=== PATIENT | female | born 2000 | race Caucasian/White ===

== ENCOUNTER 2020-07-28 13:17 | Outpatient (REF) | payer OTHER, SELFPAY | END 2020-07-28 13:18 | disposition home or self-care (01) | LOC: HO.LAB 13:17 | PROVIDERS: Visit Provider Internal Medicine | DX: Z20.822 Contact with and (suspected) exposure to COVID-19 (principal) | CPT/HCPCS: 36415; C9803; U0003; U0005 ==

== ENCOUNTER 2020-10-12 12:32 | Outpatient (REF) | payer OTHER, SELFPAY ==
[2020-10-12 13:56] LABS: COVID-19 Test Negative (Negative)
== END 2020-10-12 12:33 | disposition home or self-care (01) ==
LOC: HO.LAB 12:32
PROVIDERS: Visit Provider Internal Medicine
DX: Z20.822 Contact with and (suspected) exposure to COVID-19 (principal)
CPT/HCPCS: 36415; 87635; C9803

== ENCOUNTER 2023-10-01 10:50 | Outpatient (AMB) | payer OTHER, SELFPAY ==
--- NOTE | 2023-10-01 11:21 | AM.OFFWIN_ITS ---
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 She does not have any back pain, there is suprapubic pressure when she has to go urinate. There is no fever chills there is no vomiting, no headache UA shows positive leuk esterase 1+ I am treating her with Macrobid 100 mg b.i.d. for 3 days Patient is to push fluids If symptoms persist patient may return here for recheck. [facility] Social History Patient Tobacco Use Status: Never used Tobacco Review of Systems Const All systems reviewed & are unremarkable except as noted in HPI and below Physical Exam Vital Signs: Last Vital Signs Temp 97.9 F 10/01/23 11:27 Pulse 82 10/01/23 11:27 BP 122/78 10/01/23 11:27 Pulse Ox 98 10/01/23 11:27 Oxygen Delivery Method Room Air 10/01/23 11:27 Const General: no acute distress Orientation/consciousness: patient oriented x3 Eyes General: appearance normal, both eyes and all related structures Resp Effort & Inspection: normal respiratory effort and able to speak in complete sentences Auscultation: clear to auscultation bilaterally GI Other: Mild suprapubic pressure with palpation General: Yes no CVA tenderness Back/Spine/Pelvis Back: no CVA tenderness Neuro General: patient oriented x3 Psych Mental Status: mental status grossly normal Results AMB Urinalysis, Automated UA Leukoctes 15 O[place]da/uL Last Edit by Tunde Gibson MA on 10/01/23 11:39 UA Nitrite Positive Last Edit by Tunde Gibson MA on 10/01/23 11:39 UA Urobilinogen 0.2 mg/dL Last Edit by Tunde Gibson MA on 10/01/23 11:39 UA Protein 6.0 mg/dL Last Edit by Tunde Gibson MA on 10/01/23 11:39 UA pH Last Edit by Tunde Gibson MA on 10/01/23 11:39 UA Blood Kody/uL Last Edit by Tunde Gibson MA on 10/01/23 11:39 UA Specific [place] 1.010 Last Edit by Tunde Gibson MA on 10/01/23 11:3 9 UA Ketone Last Edit by Tunde Gibson MA on 10/01/23 11:39 UA Bilirubin mg/dL Last Edit by Tunde Gibson MA on 10/01/23 11:39 UA Glucose mg/dL Last Edit by Tunde Gibson MA on 10/01/23 11:39 Assessment & Plan Assessment & Plan (1) Urinary urgency: Code(s): R39.15 - Urgency of urination Plan Patient is 22-year-old female came in today to be evaluated for possible bladder infection Her symptom has been happening off and on for the past 6 week Patient says that sometimes she is feeling better sometimes she has a substance Her symptom present with urgency of urination. She does not have any back pain, there is suprapubic pressure when she has to go urinate. There is no fever chills there is no vomiting, no headache UA shows positive leuk esterase 1+ I am treating her with Macrobid 100 mg b.i.d. for 3 days Patient is to push fluids If symptoms persist patient may return here for recheck. Medications: New nitrofurantoin monohyd/m-cryst 100 mg (Macrobid) must administer with a meal/food 100 mg PO Q12H 3 days 6 caps 0RF Coding Level of Care Code New Pt Level 3 (40565) Diagnoses Urinary urgency R39.15
[2023-10-01 11:27] VITALS: BP 122/78; PULSE 82; TEMP 36.6; O2SAT 98; BMI 35.6
== END 2023-10-01 12:19 | disposition home or self-care (01) ==
PROVIDERS: Visit Provider Internal Medicine
DX: R39.15 Urgency of urination (principal)
CPT/HCPCS: 99203

== ENCOUNTER 2023-10-14 15:58 | Emergency (ER) | payer OTHER, SELFPAY ==
--- NOTE | ~2023-10-14 | XR_ITS ---
EXAMINATION: XR ANKLE, RIGHT CLINICAL INFORMATION: Ankle pain COMPARISON: None available. TECHNIQUE: AP, lateral, and mortise views of the right ankle. FINDINGS: Some minimal lateral soft tissue swelling is present. No fracture. Alignment is anatomic. No erosions. Joint spaces are maintained. XR/XR ankle RT 2V IMPRESSION: Minimal lateral soft tissue swelling. No fracture.
[2023-10-14 16:04] VITALS: BP 127/56; PULSE 101; RESP 16; TEMP 36.6; O2SAT 98; BMI 35.0
--- NOTE | 2023-10-14 16:32 | ED.LOWEXIN ---
HPI - Extremity Injury (Lower) General Chief Complaint: Extremity Injury, Lower Stated Complaint: right ankle inj Time Seen by Provider: 10/14/23 16:59 Source: patient Mode of arrival: ambulatory Limitations: no limitations History of Present Illness HPI Narrative: 22-year-old female with no known medical history here with right ankle pain after a twisting injury which occurred on Saturday. Related Data Previous Rx's ?Medication ?Instructions ?Recorded nitrofurantoin 100 mg PO Q12H 3 days #6 caps 10/01/23 monohydrate/macrocrystals 100 mg capsule (Macrobid) Allergies Allergy/AdvReac Type Severity Reaction Status Date / Time No Known Allergies Allergy Verified 10/14/23 16:05 Review of Systems Review of Systems: Yes all other systems are reviewed and are negative Constitutional: Constitutional: Reports no additional constitutional complaints, Denies body ache(s), Denies chills, Denies fever(s), Denies headache(s) and Denies weakness Eyes: Eyes: Reports no additional eye complaints and Denies change in vision ENT: Reports system reviewed and no additional complaints, except as documented, Denies dizziness, Denies headache(s), Denies nasal congestion, Denies nasal discharge and Denies neck pain Cardiovascular: Cardiovascular: Reports no additional cardiovascular complaints, Denies chest pain, Denies leg edema and Denies dyspnea Respiratory: Respiratory: Reports no additional respiratory complaints, Denies cough and Denies dyspnea Gastrointestinal: Gastrointestinal: Reports no additional gastrointestinal complaints, Denies abdominal pain, Denies diarrhea, Denies nausea and Denies vomiting Genitourinary: Genitourinary: Reports no additional female genitourinary complaints and Denies urinary incontinence Musculoskeletal: Musculoskeletal: Reports no additional musculoskeletal complaints, Denies back pain, Reports arthralgias, Denies joint swelling, Denies limited range of motion, Denies neck pain, Denies numbness and Denies tingling Integumentary/Breasts: Skin/Breast: Reports system reviewed and no additional complaints, except as docu and Denies rash Neurologic: Reports system reviewed and no additional complaints, except as documented, Denies Abnormal speech present, Denies dizziness, Denies headache(s), Denies numbness, Denies tingling and Denies weakness PMFSH Social History Social History Patient Tobacco Use Status: Never used Tobacco Advance Directives: No Advance Directives Information Provided: No Do you have a plan to hurt others: No Plan Physical Exam Vital Signs: Vital Signs: Last Vital Signs Temp 97.9 F 10/14/23 17:08 Pulse 101 H 10/14/23 17:08 Resp 16 10/14/23 17:08 BP 127/56 L 10/14/23 17:08 Pulse Ox 98 10/14/23 17:08 O2 Del Method Room Air 10/14/23 17:08 BMI result Body Mass Index 35.0 Const: General: cooperative, healthy appearing, comfortable and no acute distress Orientation/consciousness: patient oriented x3 Limitations: no limitations HEENT: Head: Yes normal to inspection Ears: hearing grossly normal bilaterally General nose exam: Normal external nose present Face and sinus: Yes normal facial exam Mouth: Normal oral and palatal mucosa present Throat: Yes posterior oropharynx normal Eyes: General: appearance normal, both eyes and all related structures Pupils: Equal, round and reactive pupils present Neck: Neck: Yes normal visual inspection Chest: Chest palpation & inspection: normal inspection of the chest Resp: Effort & Inspection: normal respiratory effort Auscultation: clear to auscultation bilaterally Cardio: Rate: regular rate Rhythm: regular rhythm Peripheral pulses: Peripheral pulses 2+ throughout GI: Inspection: Yes normal to inspection Palpation (GI): Soft to palpation and nontender Auscultation: normal bowel sounds Back/Spine/Pelvis: Thoracic/Lumbar Spine: thoracic and lumbar spine normal to inspection Skin: General skin exam: no rashes or lesions noted Neuro: General: patient oriented x3, no focal motor deficits and normal sensation to monofilament Cranial nerves: Yes Equal, round and reactive pupils present Cognition (Neuro): normal cognition Speech: No Abnormal speech present Gait exam (Neuro): Normal gait present Motor exam (neuro): 5/5 motor strength present throughout Extrem: Other: There is ecchymosis and swelling over the right lateral ankle. 2+ DP and PT pulses. Pain with flexion of the ankle. Normal sensation Active and passive range of motion intact No pain on palpation over the posterior ankle, anterior ankle, foot Negative Todd Course Course Course Narrative: This is a rapid medical exam. Defer additional HPI, ROS, PE to primary provider. 22-year-old female here with right ankle pain after twisting injury on Saturday. Will check x-rays. Vitals stable Reevaluation(s) Reevaluation #1: X-rays are negative for fracture. Likely sprain. Patient placed in Seb wrap. She has been ambulating on the extremity so she declined crutches. Reviewed rice. Reviewed supportive care at home. Medical Decision Making Medical Decision Making MDM Narrative: 22-year-old female with no known medical history here with right ankle pain after a twisting injury which occurred on Saturday. There is ecchymosis and swelling over the right lateral ankle. 2+ DP and PT pulses. Pain with flexion of the ankle. Normal sensation Active and passive range of motion intact No pain on palpation over the posterior ankle, anterior ankle, foot Will check x-ray Differential Diagnosis Differential Diagnoses: The differential diagnosis associated with the presentation includes Sprain, strain Low concern for fracture, dislocation, vascular injury, Achilles tendon rupture Admission/Observation Consideration of admission/observation: Escalation of care including admission/observation considered Low concern for fracture, dislocation, vascular injury with negative x-rays, no need for advanced imaging, urgent ortho consultation Independent Interpretation I performed an independent interpretation of an: Plain X-Ray Interpretation: I independently reviewed the x-ray and agree with the radiology report Radiology Impression Discussion of test interpretation with radiology: I have reviewed the radiologist's reading. Radiologist Impression: [place] [id number] XRay Report Signed Patient: Melisa Freed MR#: [id number] : 2000 Acct:[id number] Age/Sex: 22 / F ADM Date: 10/14/23 Loc: .ED Attending Dr: Ordering Physician: Generic ED Physician Date of Service: 10/14/23 Procedure(s): XR ankle RT 2V Accession Number(s): [id number] cc: Generic ED Physician; Physician,None ~ EXAMINATION: XR ANKLE, RIGHT CLINICAL INFORMATION: Ankle pain COMPARISON: None available. TECHNIQUE: AP, lateral, and mortise views of the right ankle. FINDINGS: Some minimal lateral soft tissue swelling is present. No fracture. Alignment is anatomic. No erosions. Joint spaces are maintained. XR/XR ankle RT 2V IMPRESSION: Minimal lateral soft tissue swelling. No fracture. Independent Historian Clinical information obtained from an independent historian. History obtained from or confirmed by: Friend Tests considered The following testing was considered but not selected: low concern for fracture, dislocation, vascular injury with negative x-rays, no need for advanced imaging, Prescription Management I considered prescription management with: Pain Medication Discharge Plan Discharge Clinical Impression: Ankle sprain and strain Patient Disposition: Home, Self-Care Instructions: Ankle Sprain (ED) Additional Instructions: Rest, ice, elevation, use the Seb wrap as desired Take Motrin or Tylenol for pain as needed Your x-ray show no fracture Prescriptions: No Action nitrofurantoin monohyd/m-cryst [Macrobid] 100 mg capsule 100 mg PO Q12H 3 Days Qty: 6 0RF Rx Instructions: must administer with a meal/food Referrals: Physician,None [Primary Care Provider] - 1 week Interventions: ED Discharge Assessment Last Done: 10/14/23 17:08 Discharge Date/Time: 10/14/23 17:08 Print Language: Colombian
[2023-10-14 17:08] VITALS: BP 127/56; PULSE 101; RESP 16; TEMP 36.6; O2SAT 98
== END 2023-10-14 17:08 | disposition home or self-care (01) ==
LOC: HO.ED 17:08
PROVIDERS: Emergency Provider Internal Medicine
DX: S93.401A Sprain of unspecified ligament of right ankle, initial encounter (principal); S96.911A Strain of unspecified muscle and tendon at ankle and foot level, right foot, initial encounter; X50.1XXA Overexertion from prolonged static or awkward postures, initial encounter; Y93.9 Activity, unspecified; Y92.9 Unspecified place or not applicable; Y99.9 Unspecified external cause status
CPT/HCPCS: 73600; 99282; 99283